=== PATIENT | male | born 1970 | race Caucasian/White ===

== ENCOUNTER 2018-06-28 12:51 | Inpatient (IN) | payer MEDICAID, OTHER ==
[2018-06-28 14:04] LABS: ADD MAN DIFF? NO
[2018-06-28 14:07] LABS: WHITE BLOOD COUNT 8.3 10^3/ul (4.8-10.8)
[2018-06-28 14:07] LABS: BASOPHILS % 0.4 % (0.0-2.0); EOSINOPHILS # 0.1 10^3/ul (0.0-0.5); EOSINOPHILS % 0.6 % (0.0-7.0); HEMATOCRIT 44.6 % (42.0-52.0); HEMOGLOBIN 16.4 g/dl (14.0-18.0); LYMPHOCYTES # 2.1 10^3/ul (0.8-2.9); LYMPHOCYTES % 25.8 % (15.0-51.0); MEAN CORPUSCULAR HEMOGLOBIN 30.8 pg (29.0-33.0); MEAN CORPUSCULAR HGB CONC 36.8 g/dl (32.0-37.0); MEAN CORPUSCULAR VOLUME 83.7 fl (82.0-101.0); MEAN PLATELET VOLUME 10.8 fl (7.4-10.4); MONOCYTE # 0.5 10^3/ul (0.3-0.9); NEUTROPHIL # 5.5 10^3/ul (1.6-7.5); NEUTROPHILS % 66.8 % (39.0-77.0); PLATELET COUNT 273 10^3/UL (140-415); RED BLOOD COUNT 5.33 10^6/ul (4.70-6.10); RED CELL DISTRIBUTION WIDTH 13.3 % (11.5-14.5)
[2018-06-28 14:28] LABS: INR 0.82; PROTIME 11.4 Sec (11.9-14.9); PT RATIO 0.9
[2018-06-28 14:29] LABS: PARTIAL THROMBOPLASTIN TIME 31.3 Sec (23.0-35.0)
[2018-06-28 15:07] LABS: ALBUMIN 5.1 g/dl (3.3-4.9); ALKALINE PHOSPHATASE 147 IU/L (42-121); ANION GAP 24 (8-16); ASPARTATE AMINO TRANSFERASE 132 IU/L (15-46); BILIRUBIN,INDIRECT 1.2 mg/dl (0-1.1); BILIRUBIN,TOTAL 1.2 mg/dl (0.2-1.3); BLOOD UREA NITROGEN 16 mg/dl (7-20); CALCIUM 9.2 mg/dl (8.4-10.2); CARBON DIOXIDE 20 mmol/L (21-31); CHLORIDE 95 mmol/L (97-110); CREATININE 0.75 mg/dl (0.61-1.24); SODIUM 130 mmol/L (135-144)
[2018-06-28 15:13] LABS: ALBUMIN/GLOBULIN RATIO 1.08
[2018-06-28 15:19] LABS: ALANINE AMINOTRANSFERASE < 6 IU/L (13-69)
[2018-06-28 15:20] LABS: TOTAL PROTEIN 9.8 g/dl (6.1-8.1); TROPONIN-I 0.025 ng/ml (0.000-0.120)
[2018-06-28 15:23] LABS: POTASSIUM 8.6 mmol/L (3.5-5.1)
[2018-06-28 15:24] LABS: GLUCOSE 423 mg/dl (70-220)
[2018-06-28] MEDS ORDERED: POTASSIUM CHLORIDE 40 MEQ in SOD CHLORIDE 0.9% 1,000 ML IV (15:32)
[2018-06-28] MEDS ORDERED: SODIUM CHLORIDE 23.4% 77 MEQ, POTASSIUM CHLORIDE 30 MEQ in DEXTROSE 10% 1,000 ML IV (15:32)
[2018-06-28] MEDS ORDERED: POTASSIUM CHLORIDE 30 MEQ in SOD CHLORIDE 0.9% 1,000 ML IV (15:32)
[2018-06-28] MEDS ORDERED: SODIUM CHLORIDE 23.4% 77 MEQ, POTASSIUM CHLORIDE 40 MEQ in DEXTROSE 10% 1,000 ML IV (15:32)
[2018-06-28 15:57] LABS: HEMOGLOBIN A1C 10.4 % (0-5.9)
[2018-06-28] MEDS ORDERED: DEXTROSE 50% 50 ML SYRINGE IV ×4 (16:00→19:30)
[2018-06-28 16:04] LABS: ANION GAP 20 (8-16); BLOOD UREA NITROGEN 16 mg/dl (7-20); CALCIUM 8.9 mg/dl (8.4-10.2); CARBON DIOXIDE 21 mmol/L (21-31); CHLORIDE 98 mmol/L (97-110); CREATININE 0.64 mg/dl (0.61-1.24); MAGNESIUM 1.9 mg/dl (1.7-2.5); PHOSPHORUS 5.3 mg/dl (2.5-4.9); SODIUM 132 mmol/L (135-144)
[2018-06-28 16:09] LABS: GLUCOSE 408 mg/dl (70-220); POTASSIUM 7.3 mmol/L (3.5-5.1)
[2018-06-28] MEDS: NA BICARBONATE 8.4% 50 ML SYG IV (16:34)
[2018-06-28] MEDS: CA CHLORIDE 10% 10 ML SYRINGE IV (16:34)
[2018-06-28] MEDS: LACTATED RINGER S IV (16:35)
[2018-06-28] MEDS: SOD CHLORIDE 0.9% 1,000 ML IV ×2 (16:41→20:02)
[2018-06-28 16:46] LABS: ADD UMIC NO; UR ASCORBIC ACID NEGATIVE (NEGATIVE); UR BILIRUBIN (Dip) NEGATIVE (NEGATIVE); UR BLOOD (Dip) NEGATIVE (NEGATIVE); UR CLARITY CLEAR (CLEAR); UR COLOR YELLOW (YELLOW); UR GLUCOSE (Dip) 3+ mg/dL (NEGATIVE); UR KETONES (Dip) TRACE mg/dL (NEGATIVE); UR LEUKOCYTE ESTERASE (Dip) NEGATIVE Leu/ul (NEGATIVE); UR NITRITE (Dip) NEGATIVE (NEGATIVE); UR SPECIFIC GRAVITY (Dip) 1.033 (1.003-1.030); UR TOTAL PROTEIN (Dip) NEGATIVE (NEGATIVE); UR UROBILINOGEN (Dip) NEGATIVE (NEGATIVE)
[2018-06-28] MEDS: INSULIN REGULAR, HUMAN 100 UNIT in SOD CHLORIDE 0.9% 100 ML IV (17:08)
[2018-06-28 17:21] LABS: MODE ROOM AIR; MetHgb Venous 0.1 %; Sample Type Blood venous; Site VENOUS LINE; Venous COHb 0.2 %; Venous Fraction OxyHgb 94.4 %; Venous Oxygen Sat 94.7 mmHG (55.0-75.0); Venous Total Hemglobin 14.9 g/dl
[2018-06-28] MEDS ORDERED: MAGNESIUM HYDROXIDE 30ML CUP PO (18:00)
[2018-06-28] MEDS ORDERED: DOCUSATE SODIUM 100 MG CAP PO (18:00)
[2018-06-28] MEDS ORDERED: ZOLPIDEM 5 MG TAB PO (18:00)
[2018-06-28] MEDS ORDERED: ONDANSETRON 4 MG INJ IV (18:00)
[2018-06-28] MEDS ORDERED: NACL 0.9% 3 ML SYG IV (18:00)
[2018-06-28] MEDS ORDERED: morphine 2 MG INJ IV (18:00)
[2018-06-28] MEDS: SODIUM CHLORIDE 23.4% 77 MEQ in DEXTROSE 10% 1,000 ML IV (18:39)
[2018-06-28] MEDS: HYDROCODONE/APAP (5/325) TAB PO (18:42)
[2018-06-28 18:45] LABS: ANION GAP 14 (8-16); BLOOD UREA NITROGEN 15 mg/dl (7-20); CALCIUM 9.4 mg/dl (8.4-10.2); CARBON DIOXIDE 22 mmol/L (21-31); CHLORIDE 104 mmol/L (97-110); CREATININE 0.53 mg/dl (0.61-1.24); GLUCOSE 249 mg/dl (70-220); MAGNESIUM 1.8 mg/dl (1.7-2.5); PHOSPHORUS 5.2 mg/dl (2.5-4.9); POTASSIUM 5.8 mmol/L (3.5-5.1); SODIUM 134 mmol/L (135-144)
[2018-06-28] MEDS: ACCU-CHEK XX ×4 (20:08→22:54)
[2018-06-28] MEDS: INSULIN HUMAN REGULAR 100 UNIT in SOD CHLORIDE 0.9% 99 ML IV (20:08)
[2018-06-29] MEDS: ACCU-CHEK XX ×18 (00:15→17:00)
[2018-06-29] MEDS: SOD CHLORIDE 0.9% 1,000 ML IV (04:07)
[2018-06-29 05:31] LABS: ADD MAN DIFF? NO
[2018-06-29 05:52] LABS: BASOPHIL # 0.1 10^3/ul (0.0-0.1); BASOPHILS % 0.6 % (0.0-2.0); EOSINOPHILS # 0.1 10^3/ul (0.0-0.5); EOSINOPHILS % 1.5 % (0.0-7.0); HEMATOCRIT 40.2 % (42.0-52.0); HEMOGLOBIN 14.2 g/dl (14.0-18.0); LYMPHOCYTES # 2.6 10^3/ul (0.8-2.9); LYMPHOCYTES % 33.1 % (15.0-51.0); MEAN CORPUSCULAR HEMOGLOBIN 29.8 pg (29.0-33.0); MEAN CORPUSCULAR HGB CONC 35.3 g/dl (32.0-37.0); MEAN CORPUSCULAR VOLUME 84.5 fl (82.0-101.0); MEAN PLATELET VOLUME 10.4 fl (7.4-10.4); MONOCYTE # 0.6 10^3/ul (0.3-0.9); MONOCYTES % 7.2 % (0.0-11.0); NEUTROPHIL # 4.5 10^3/ul (1.6-7.5); NEUTROPHILS % 56.8 % (39.0-77.0); PLATELET COUNT 223 10^3/UL (140-415); RED BLOOD COUNT 4.76 10^6/ul (4.70-6.10); RED CELL DISTRIBUTION WIDTH 12.9 % (11.5-14.5)
[2018-06-29 06:08] LABS: HEMOGLOBIN A1C 10.3 % (0-5.9)
[2018-06-29 06:32] LABS: ANION GAP 10 (8-16); BLOOD UREA NITROGEN 15 mg/dl (7-20); CALCIUM 8.1 mg/dl (8.4-10.2); CARBON DIOXIDE 23 mmol/L (21-31); CHLORIDE 107 mmol/L (97-110); CREATININE 0.57 mg/dl (0.61-1.24); GLUCOSE 133 mg/dl (70-220); MAGNESIUM 1.6 mg/dl (1.7-2.5); PHOSPHORUS 5.5 mg/dl (2.5-4.9); POTASSIUM 3.3 mmol/L (3.5-5.1); SODIUM 137 mmol/L (135-144)
[2018-06-29] MEDS: ACETAMINOPHEN 325 MG TAB PO (09:58)
[2018-06-29] MEDS: POTASSIUM CHLORIDE (SR) 20 MEQ TAB PO (11:43)
[2018-06-29] MEDS: MAGNESIUM OXIDE 400 MG TAB PO (11:43)
[2018-06-29] MEDS: HYDROCODONE/APAP (5/325) TAB PO (11:45)
[2018-06-29] MEDS: INSULIN HUMAN REGULAR 100 UNIT in SOD CHLORIDE 0.9% 99 ML IV (11:47)
[2018-06-29] MEDS ORDERED: GLUCOSE GEL 15 GRAM TUBE PO ×2 (13:00)
[2018-06-29] MEDS ORDERED: DEXTROSE 50% 50 ML SYRINGE IV ×2 (13:00)
[2018-06-29] MEDS ORDERED: GLUCOSE GEL 15 GRAM TUBE BUCCAL (13:00)
[2018-06-29] MEDS ORDERED: GLUCAGON 1 MG INJ IM (13:00)
[2018-06-29] MEDS: INSULIN GLARGINE [LANTus] (100 UNITS/ML) SYG SC (13:30)
[2018-06-29] MEDS ORDERED: KETOROLAC 15 MG INJ IV (14:00)
[2018-06-29] MEDS: KETOROLAC 15 MG INJ IV (14:26)
[2018-06-29] MEDS: INSULIN ASPART [NOVOLOG] 3 ML PEN SC ×3 (17:26→21:00)
[2018-06-30] MEDS: INSULIN ASPART [NOVOLOG] 3 ML PEN SC ×7 (08:45→21:11)
[2018-06-30] MEDS: INSULIN GLARGINE [LANTus] (100 UNITS/ML) SYG SC (08:48)
[2018-06-30] MEDS: metFORMIN (XR) 500 MG TAB PO ×2 (11:11→21:10)
[2018-06-30] MEDS: LINAGLIPTIN 5 MG TABLET PO (11:15)
[2018-06-30] MEDS: INFLUENZA VIRUS VACCINE 0.5 ML (DISPENSING) IM* (12:58)
[2018-06-30] MEDS: CIPROFLOXACIN HCL OTIC DROP 0.25 ML RIGHT EAR ×2 (15:59→22:49)
[2018-07-01] MEDS: CIPROFLOXACIN HCL OTIC DROP 0.25 ML RIGHT EAR (08:42)
[2018-07-01] MEDS: LINAGLIPTIN 5 MG TABLET PO (08:42)
[2018-07-01] MEDS: metFORMIN (XR) 500 MG TAB PO (08:42)
[2018-07-01] MEDS: INSULIN ASPART [NOVOLOG] 3 ML PEN SC ×4 (08:44→13:03)
[2018-07-01] MEDS: INSULIN GLARGINE [LANTus] (100 UNITS/ML) SYG SC (08:46)
[2018-07-01] MEDS ORDERED: metFORMIN (XR) 500 MG TAB PO (17:55)
[2018-07-02] MEDS ORDERED: INSULIN GLARGINE [LANTus] (100 UNITS/ML) SYG SC (08:00)
[2018-07-02 14:31] LABS: C-PEPTIDE 1.74 ng/mL (0.80-3.85)
== END 2018-07-01 16:55 | disposition home or self-care (01) | DRG 639 ==
LOC: ICU 18:51 → FTE 12:51 → MS1 06-29 20:05 → ICU 17:00
PROVIDERS: Internal Medicine
DX: E11.10 Type 2 diabetes mellitus with ketoacidosis without coma (principal); E87.5 Hyperkalemia; H92.01 Otalgia, right ear
CPT/HCPCS: 36415; 70450; 71046; 80048; 80053; 81003; 82803; 82962; 83036; 83735; 84100; 84484; 84681; 85025; 85610; 85730; 87081; 93005; 96374; 96375; 99285-25